=== PATIENT | female | born 1945 | race Caucasian/White ===

== ENCOUNTER 2023-05-21 06:30 | Day surgery (SDC) | payer MEDICARE, OTHER, SELFPAY ==
[2023-05-21] VITALS (12 sets, daily range): BP systolic 102–161; BP diastolic 65–94; BMI 24.4
[2023-05-21] MEDS: VANCOCIN 200 IV (10:44)
[2023-05-21] MEDS: NORMOSOL-R 1000 IV (10:44)
--- NOTE | 2023-05-21 11:08 | W.SUR.PREOP ---
Pre-Operative Surgical Note
-
I have examined this patient prior to the performance of the scheduled procedure.
The patient's condition is unchanged from the time of the current History and
Physical and the patient is able to undergo the scheduled procedure.
[2023-05-21] MEDS: DILAUDID 0.25 MG IV ×2 (12:43→12:58)
--- NOTE | 2023-05-21 13:30 | W.IMMPOSTOP ---
Surgical Immed Post Op Note
-
Primary Surgeon: Elias Bradshaw MD
Assisting Surgeon: None
Pre-op Diagnosis: Biliary colic
Post-op Diagnosis: Same
Procedure Performed: Laparoscopic cholecystectomy
Anesthesia Type: General
Specimen / Cultures: Gallbladder and contents.
Estimated Blood Loss: 3 cc
Complications: None
Operative Findings: The RING STRIKER shunt was identified early and preserved throughout the entire case. There was some flimsy adhesions over the anterior gallbladder wall which were taken down sharply and with electrocautery dissection. A critical view of
safety was obtained prior to ligation of the cystic artery and duct. A cystic duct stone was milked back and removed after a ductotomy. There was no spillage of bile or stones.
--- NOTE | 2023-05-21 13:36 | OR.RPT ---
Operative Report
Operative Report
Patient Name: Melissa Wright
: 1945
Date of Operation: 05/21/2023
Preoperative Diagnosis: Symptomatic Cholelithiasis
Postoperative Diagnosis: Same
Procedure(s):
Laparoscopic Cholecystectomy with Cholangiogram
Surgeon(s):
Dr. Bradshaw
Automotive Engineering Technician(s):
NARESH Smith
Anesthesia: General
Estimated Blood Loss: 3 cc
Urine Output: None
Drains/Lines/Implants: None
Specimens:
1. Gallbladder and contents
HPI/Surgical Indications:
This is a 77-year-old female who presents with abdominal pain. Exam, labs and imaging are consistent with symptomatic cholelithiasis. Risks/Benefits/Alternatives were discussed at length, and the patient agreed to proceed with surgery.
Findings:
The patient was noted to have some evidence of gallbladder inflammation noted by omental adhesions. A Critical View of Safety was obtained. Cholangiogram showed no filling defects in the biliary system with the Left, Right Anterior, Right posterior
hepatic ducts, CHD, cystic duct and CBD all identified. There was brisk flow of dye into the duodenum.
Procedure Description:
The patient was brought to the Operating Room and placed in the supine position. IV antibiotics were infused and sequential compression devices were confirmed to be on. Following uneventful induction of general endotracheal anesthesia, an
orogastric tube was placed. The abdomen was prepped and draped in the usual sterile fashion. The abdomen was entered using an infraumbilical open Jeremie technique with a 12 mm trochar. Pneumoperitoneum to 15 mmHg pressure was obtained without
difficulty and we confirmed that no injury had occurred during our entry. The patient was positioned in reverse trendelenberg and rotated with the right side up slightly. The BIT TAPPER shunt was readily identified and preserved. Three (3) 5mm trocars
were then placed along the right subcostal margin. A locking grasping forceps was placed on the fundus of the gallbladder where it was then retracted cephalad and to the right. There were some flimsy adhesions to the anterior gallbladder wall which
were taken down with sharp dissection as well as electrocautery. Using appropriate grasping instruments, the peritoneum overlying the triangle of Calot was incised. The cystic duct/gallbladder junction was identified, dissected circumferentially.
The cystic artery was identified medially and was dissected circumferentially. The cystic artery was ligated with 2 clips proximally, 1 clip distally and divided. Similarly the gallbladder was clipped once proximally. The common bile duct up to
the cystic duct was swept and a small stone could be palpated through the wall of the cystic duct. Holding that stone in place with [place]ms[place] I then clipped the cystic duct distally with two 5 mm titanium clips. The duct was then divided. A single,
yellow/cholesterol gallstone was identified and removed. I then reinforced her cystic duct closure with 0 PDS Endoloop, proximal to the previous clips. The remaining soft tissue attachments of the gallbladder to the liver bed were then divided
using electrocautery carefully. There was no spillage of bile or stones. The gallbladder bed was inspected and excellent hemostasis was obtained. The gallbladder was extracted through the 12 mm trocar site using an endocatch bag. The abdomen was
again irrigated and excellent hemostasis was assured. The 12 mm trocar site was closed using a figure of 8 of 0 PDS. We then visually confirmed that no injury had occurred to the BIT TAPPER shunt which was near our umbilical closure. All remaining
trocars were then removed and the pneumoperitoneum was evacuated. All trocar sites were closed at the skin level using 4-0 Monocryl followed by Dermabond. Overall, the patient tolerated the procedure well and was taken to the Recovery Room
postoperatively in stable condition.
I was the attending physician and performed the procedure with assistance from the RN CLINICAL APPEALS above. I was present for all portions of the case
Elias Bradshaw MD
--- NOTE | 2023-05-21 14:03 | SUR.PHASEI ---
vss, medicated x2 with dilaudid for pain with relief, no nausea, very talkative when more awake, ice pack to abd for comfort
[2023-05-21] MEDS: TYLENOL 650 MG PO (14:45)
== END 2023-05-21 15:00 | disposition home or self-care (01) ==
LOC: SDS 06:30
PROVIDERS: ATTENDING PHYSICIAN Surgery
DX: K80.10 Calculus of gallbladder with chronic cholecystitis without obstruction (principal); K80.70 Calculus of gallbladder and bile duct without cholecystitis without obstruction
CPT/HCPCS: 47563; 88304

== ENCOUNTER 2025-01-07 23:41 | Emergency (ER) | payer MEDICARE, OTHER, SELFPAY ==
[2025-01-07 23:46] VITALS: BP 168/100
[2025-01-08] MEDS: TORADOL 15 MG IM (01:05)
--- NOTE | 2025-01-08 01:48 | ED.MUSCINJ ---
HPI-Injury
General
Chief Complaint: Musculo-Skeletal Complaint
Source: patient and spouse
Time Seen by Provider: 01/08/25 00:49
Nursing documentation reviewed up to this point in time: agreed with
History of Present Illness-Injury
Initial Injury comments:
Note:
CHIEF COMPLAINT(S)
Persistent back pain and inability to lie flat due to discomfort.
HISTORY OF PRESENT ILLNESS
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 The onset of this pain was approximately three weeks ago. She reports the pain primarily
around the ankle region, aligning with a previous area where screws were removed. The patient has expressed difficulty and faintness when attempting to lie flat for imaging. She is uncertain if a dayton might have shifted, though I will review the
x-ray closely. The patient mentioned discomfort specific to certain areas, which she describes as aching.
PHYSICAL EXAM
General: Alert, no acute distress.
Skin: Warm, dry.
Head: Normocephalic, atraumatic.
Neck: Supple, trachea midline.
Eyes, ears, nose, mouth, and throat: Oral mucosa moist.
Cardiovascular: Normal peripheral perfusion, no edema.
Respiratory: Respirations are non-labored.
Gastrointestinal: Abdomen nondistended.
Back: No new abnormalities; reviewing specific areas of concern per patients feedback.
Musculoskeletal: Normal range of motion, normal strength.
Neurological: Alert and oriented to person, place, time, and situation, no focal neurological deficit observed.
Psychiatric: Cooperative, appropriate mood & affect.
PLAN
An injection of a stronger version of NSAIDs, likely Ketorolac, is to be administered to manage the patients pain. I will review the x-rays closely to ascertain any cause of pain related to previous surgical alterations, particularly potential
shifting of a dayton or other orthopedic devices.
DIFFERENTIAL DIAGNOSIS
The Differential Diagnosis includes, in no particular order and is not limited to:
1. Musculoskeletal pain
2. Osteoarthritis
3. Hardware-related discomfort
4. Degenerative disc disease
5. Lumbar spinal stenosis
6. Vertebral fracture
7. Sciatica
8. Osteoporosis
9. Myofascial pain
10. Spondylolisthesis
Disposition:
SUMMARY OF ENCOUNTER
The patient is an 79-year-old female who presented with left ankle pain experienced after standing for a long period while baking cookies. She has a history of a tibial dayton placed prior to 2006, with screws subsequently removed due to pain. Imaging
revealed a possible slight fibular fracture adjacent to one of the screw holes.
DISPOSITION
Discharge.
ASSESSMENT
The patient is assessed with a non-displaced fracture of the distal fibula.
PLAN
The patient is to follow up with Dr. Pena, as per her request, since he performed previous surgery on her .
INDEPENDENT REVIEW OF LABS AND INTERPRETATION OF TESTS
My independent interpretation of the X-ray indicates a slight fibular fracture adjacent to one of the screw holes.
PATIENT EDUCATION AND COUNSELING
The patient was counseled about the nature of the non-displaced distal fibula fracture and the importance of follow-up care.
FOLLOW-UP INSTRUCTIONS
The patient is advised to follow up with Dr. Pena.
MEDICATION RECONCILIATION
The patient was placed in a CAM walker boot for support.
MEDICAL DECISION MAKING
-Complexity of Data Reviewed: Chronic conditions affecting care.
1. Number and Complexity of Problems Addressed: Chronic conditions affecting care related to orthopedic history, with a differential diagnosis including musculoskeletal pain, hardware-related discomfort, and possible fracture.
2. Data:
Category 1
My independent interpretation of the X-ray shows a slight fibular fracture adjacent to one of the screw holes.
3. Risk: Prescription drug management or therapy requiring monitoring for toxicity was not applicable as medication reconciliation involved the application of a CAM walker boot.
DIAGNOSIS
Non-displaced fracture of the distal fibula (ICD-10 Code: S82.64XA).
Past History
Past History
ED Past Medical History: HTN, Psychiatric (Depression), Other (Fractured R ankle) and Other (agree with documented pmhx, confirmed with pt)
ED Past Surgical History: Gynecological (Tubal ligation, hysterectomy) and Other (IMPREGNATOR HELPER shunt [place] in L lower leg)
Social History
Tobacco: Non-smoker
Alcohol: Occasional
Personal:
Living: with family
Employment: Not employed
Family History
Family History: CAD
Phy Exam
Physical Exam
Physical Exam:
.
Injury Course
Orders/Labs/Results
Orders:
Orders
01/07/25 23:53
Tibia/Fibula, Left 2 View [CR Leg Tibia/fibula Left 2 Vw] Urgent
Comment:
Reason For Exam: pain
01/08/25 00:58
Ketorolac [Toradol] 15 mg IM NOW STA
*Radiology
Radiology exam reviewed: preliminary read by ED provider (Distal fibula fracture)
*Pulse Oximetry
SaO2: 96
Oxygen Mode of Delivery: Room air
Patient hypoxic: no
*Critical Care Note
Total Time (30-74mins, 75-104mins- exclusive of procedures): Not Applicable
ED Attending Note
-
Portions of this chart may have been created with voice recognition software.� Occasional wrong word or��sound alike� substitutions may have occurred due to the inherent limitations of voice recognition software.
Discharge Plan
Departure
Patient Disposition: Home (Routine Discharge)
Date of Disposition: 01/08/25
Time of Disposition: 01:49
Patient with high blood pressure during this ER visit?: Yes
Condition: Good
Discharge Problem:
Acute ankle pain, Fracture of distal end of fibula
Instructions: Walking Boot, Ankle Fracture ED, BLOOD PRESSURE
Prescriptions:
New
tramadol 50 mg tablet
50 mg PO Q8H PRN (Reason: Pain) Qty: 10 0RF
No Action
amlodipine 5 MG tablet
5 mg PO DAILY
therapeutic multivitamin Tablet
1 tab PO DAILY
coenzyme Q10 [CoQ-10] 100 mg Capsule
100 mg PO DAILY
methenamine hippurate 1 gram tablet
1 g PO DAILY
hydrochlorothiazide 25 mg tablet
25 mg PO DAILY
olmesartan 20 mg tablet
20 mg PO DAILY
escitalopram oxalate 20 mg tablet
20 mg PO DAILY
bupropion HCl 300 mg tablet extended release 24 hr
300 mg PO DAILY
biotin 1 mg Tablet
1 mg PO DAILY
alendronate [Fosamax] 70 mg Tablet
70 mg PO ZAZUETA
acetaminophen 500 mg Tablet
1,000 mg PO Q6H PRN (Reason: pain)
cyanocobalamin (vitamin B-12) 1,000 mcg Tablet, Sublingual
3,000 mcg SUBLINGUAL DAILY
melatonin 5 mg Tablet
5 mg PO HS PRN (Reason: Insomnia)
cholecalciferol (vitamin D3) [Vitamin D3] 50 mcg (2,000 unit) Capsule
50 mcg PO DAILY
cranberry extract [Ellura] 200 mg Capsule
200 mg PO DAILY
MegaRed [place]-3 Krill Oil
1 cap PO DAILY
turmeric root-robert root ext
1 cap PO DAILY
ibuprofen 600 mg tablet
600 mg PO Q6H PRN (Reason: pain) Qty: 14 0RF
tramadol 50 mg tablet
25 mg PO Q6HPRN PRN (Reason: severe pain/breakthrough pain) Qty: 8 0RF
Referrals:
Dale Pena MD [Active, Orthopedics]
UNKNOWN - PT DOES,NOT KNOW [Family Provider]
Activity Restrictions/Additional Instructions:
As discussed, Tylenol or Motrin for the pain.
Thank You for choosing [facility].
It was a pleasure meeting you and taking part in your care. We hope for your continued healing and wellness.
Please read discharge instructions in their entirety. However, they are for general education and may not describe your exact diagnosis at discharge. Information on your ER visit and medical conditions were discussed with you along with appropriate
follow up information...
If indicated, please take your medications as instructed and indicated on discharge paperwork.
Please schedule a follow up appointment as directed. Call to schedule an appointment
Please return to the emergency department with ANY change in, persisting, or worsening of symptoms. If any of your symptoms do not improve, or persist, or become more severe within 6-12 hours, please return to the emergency department for further
care.
Please return to the emergency department if you develop a headache, neck pain/stiffness, fever greater than 100.4F, chest pain, shortness of breath, persistent nausea, vomiting, slurred speech, difficulty walking, numbness/tingling, weakness, signs
of infection or any other symptoms that are worrisome to you.
If you have any questions or concerns please do not hesitate to call the Hospital at .
Interventions
Interventions:
*Risk Screen - Suicide Last Done: 01/07/25 23:46
*General Assessment Last Done: 01/07/25 23:46
*Neglect/Abuse Screening Last Done: 01/07/25 23:46
*ED- Fall Risk Assessment Last Done: 01/07/25 23:46
*ED COVID-19 Vaccine History Last Done: 01/08/25 02:26
*ED Influenza Vaccine History Last Done: 01/07/25 23:46
*Nursing Disposition Last Done: 01/08/25 02:26
ED-Musculoskeletal Assessment Last Done: 01/08/25 00:58
Discharge Date and Time
Discharge Date/Time: 01/08/25 02:28
Print Language: [id number]
[2025-01-08 02:19] VITALS: BP 169/100
== END 2025-01-08 02:28 | disposition home or self-care (01) ==
LOC: EMR 23:41
PROVIDERS: EMERGENCY PHYSICIAN Student in an Organized Health Care Education/Training Program
DX: S82.832A Other fracture of upper and lower end of left fibula, initial encounter for closed fracture (principal); X58.XXXA Exposure to other specified factors, initial encounter; I10 Essential (primary) hypertension; F32.A Depression, unspecified; Z98.2 Presence of cerebrospinal fluid drainage device; Z82.49 Family history of ischemic heart disease and other diseases of the circulatory system
CPT/HCPCS: 99284; 96372; 73590